=== PATIENT | female | born 1980 | race African-American/Black ===

== ENCOUNTER → 2017-06-05 | Day surgery (SDC) | payer OTHER ==
[~2017-06-05] VITALS: Ht 160 cm; Wt 58.2 kg
[~2017-06-05] MED LIST: ACETAMINOPHEN 1000 MG/100 ML 100 ML IV ONE; CHLORHEXIDINE GLUCONATE 2 % 1 PACK (2 CLOTHS) TOPICAL PRN; DEXAMETHASONE SOD PHOS 4 MG/ML VIAL IV ONE; DO NOT ADM ANY ANTICOAGULANT DRUGS PRN; KETOROLAC TROMETHAMINE 30 MG/ML (IVP) VIAL IV PUSH ONE; KETOROLAC TROMETHAMINE 30 MG/ML (IVP) VIAL ONE; LACTATED RINGER'S 1000 ML IV PRN; LIDOCAINE 1%/EPINEPHrine 1:100,000 SOLN 30 ML VIAL ONE; LIDOCAINE HCL 1% PF 5 ML SYRINGE OTHER ONE; METOPROLOL TARTRATE 25 MG TAB PO PRN; MIDAZOLAM HCL 2 MG/2 ML VIAL ONE; ONDANSETRON HCL 4 MG/2 ML VIAL IV ONE; POVIDONE IODINE 5% (ANTISEPSIS KIT) 4 APPLICATIONS EACH NARE PRN; PRENTAB7; PROPOFOL 200 MG/20 ML AMP IV ONE; SODIUM CHLORID 0.9% 500 ML IV PRN; ceFAZolin INJ 1,000 MG VIAL IV ONE; ceFAZolin INJ 1,000 MG VIAL ONE; oxyCODONE/ACETAMINOPHEN 5 MG/325 MG TAB PO PRN
--- NOTE | 2017-06-05 08:29 | MP ---
cc: Aleah Huynh MD,[facility] DATE OF OPERATION: 06/05/2017 PREOPERATIVE DIAGNOSIS: Cervical carcinoma in situ/high grade dysplasia. POSTOPERATIVE DIAGNOSIS: Cervical carcinoma in situ/high grade dysplasia. PROCEDURE PERFORMED: Examination under anesthesia, colposcopy, cold knife conization of the cervix, endocervical curettage. SURGEON: Aleah Huynh MD. DIRECTOR OF PATIENT FINANCIAL SERVICES: [employer]. ANESTHESIA: Laryngeal mask. ESTIMATED BLOOD LOSS: 10 mL. HISTORY: A 36-year-old female. Abnormal Pap smear led to colposcopically directed biopsy showed high grade cervix dysplasia, as well as positive endocervical curettings. She was counseled regarding recommendations and agreed and presents now for exam under anesthesia, colposcopy and conization. She is seen in the preop holding area where the findings and plan of care was again reviewed, questions were answered. She expressed good understanding and agreed to move forward. FINDINGS: On exam under anesthesia, there is no appreciably enlarged inguinal lymph nodes. External genitalia without mass or lesion. The cervix is symmetrically smooth. No parametrial nodularity. There is good mobility to the uterus and cervix and on traction the cervix relaxes down to within 1 cm of the introitus. On colposcopic exam, there is acetowhite epithelial changes as well as subtle vascular changes circumferentially in the transformation zone. There are some subtle acetowhite changes that continue on the ectocervix at the 12 o'clock and 6 o'clock position. PROCEDURE NOTE: She was taken to the operating room, placed in the dorsal lithotomy position after laryngeal mask anesthesia was administered. A time-out was undertaken. She was identified by site recognition and hospital ID bracelet and the proposed procedure was reviewed and confirmed. She was carefully positioned in lithotomy position. Exam under anesthesia was performed with findings as described above. Dilute vinegar was applied to the cervix and vagina with colposcopy performed with findings as described above. She was prepped and draped in sterile fashion. The cervix was grasped. Lidocaine, epinephrine injected circumferentially on the ectocervix. Hemostatic and counter traction sutures were placed in the lateral cervix at 3 o'clock and 9 o'clock position in a [id number] fashion and tied securely. A scalpel was then used to perform a cone shaped excision circumferentially including all areas of abnormality from the transformation zone angling in toward the endocervical canal. The specimen was completed with scissor dissection and labeled as "cervix conization". Endocervical curetting was performed. Multiple passes circumferentially in the tissue that was obtained was combined and labeled as endocervical curetting. The cone bed was rendered hemostatic with cautery and then topical Monsel's solution. The tenaculum sites were rendered hemostatic with Monsel's solution. There was complete hemostasis. All areas of abnormality had been removed and it is noted that in the process of cauterizing the cone bed, additional cautery was used at 12 o'clock and 6 o'clock position on the ectocervix to ensure that any subtle areas of abnormality had been addressed, either by resection or cautery and all areas of abnormality were gone at the completion of the case. Good hemostasis. No remaining foreign objects in the vagina. Preliminary and final counts were correct. She was returned to dorsal supine position and was pending reversal of anesthesia when I left the operating room to precede her to the postanesthesia care unit. MD SUELLEN Marie/JOE , 08:04 AM , 08:27 AM
[2017-06-05 09:15] VITALS: BP 106/72; PULSE 50; RESP 16; TEMP 97.1; O2SAT 100
== END | disposition home or self-care (01) ==
LOC: HSDC 05:33
PROVIDERS: ATTEND Obstetrics & Gynecology Gynecologic Oncology
DX: D06.9 Carcinoma in situ of cervix, unspecified (principal)
CPT/HCPCS: 00940; 57520; 86850; 86900; 86901; 88305; 88307; J0131; J0690; J1100; J1885; J2250; J2405; J3010; J7120